=== PATIENT | male | born 1980 | race African-American/Black ===

== ENCOUNTER 2017-10-07 18:39 | Emergency (ER) | payer SELFPAY ==
[~2017-10-07] VITALS: Ht 167.6 cm; Wt 71.0 kg
[2017-10-07 18:40] VITALS: BP 164/89; PULSE 70; RESP 18; TEMP 99.5; O2SAT 100
--- NOTE | 2017-10-07 19:29 | PD ---
HPI Chief Complaint: GI Complaint Time Seen by Provider: 19:24 Travel History International Travel<30 days: No Contact w/Intl Traveler<30days: No Traveled to known affect area: No History of Present Illness HPI 37-year-old male presents to the emergency department by private transportation the care of family for evaluation of lower abdominal pain with multiple episodes of vomiting. Patient states he has been in his usual state of good health until Friday evening after eating [employer] he awakened in the wee hours of Friday with nausea and vomiting. Patient states he vomited primarily stomach contents and subsequently mostly he has had dry heaving. Patient denies bilious emesis coffee-ground emesis or hematemesis. Patient's last bowel movement was Friday morning and a normal bowel movement without melena or hematochezia. Patient denies any diarrhea. Patient's had subjective fever and chills but has not actually checked his temperature for elevation. Patient taking no medications. Patient states that today he has had no vomiting just persistent dry heaves and poor oral intake. Patient localizes pain to the lower abdomen and rectum and rates his pain 8/10 in intensity. Patient's had no bright red blood per rectum. Patient denies any dysuria frequency urgency flank pain or hematuria. Patient denies any injury or fall. Patient is unable to identify exacerbating or alleviating factors. Patient today tried to eat rice and corned beef but states he can only handle at teaspoonful and then had marked nausea. PFSH Past Medical History Narrative Medical Negative past medical history negative surgical history no alcohol use tobacco use positive marijuana use; nursing notes reviewed Medical History: Denies Significant Hx Tetanus Vaccination: < 5 Years Influenza Vaccination: No Past Surgical History Surgical History: No Previous Surgery Social History Alcohol Use: Yes (SOCIAL) Tobacco Use: No Substance Use: Yes (MARIJUANA) Allergies-Medications (Allergen,Severity, Reaction): Coded Allergies: No Known Allergies (Unverified , 10/07/17) Reported Meds & Prescriptions Reported Meds & Active Scripts Active Phenergan (Promethazine HCl) 25 Mg Tablet 25 Mg PO Q6H PRN Analpram-Hc Rectal (Hydrocortisone-Pramoxine Rectal) 2.5-1% Lotn 1 Applic RECTAL QID Narrative Medication No medications per patient Review of Systems Except as stated in HPI: all other systems reviewed are Neg General / Constitutional: Positive: Fever, Chills HENT: No: Sore Throat, Congestion Cardiovascular: No: Chest Pain or Discomfort Respiratory: No: Shortness of Breath Gastrointestinal: Positive: Nausea, Vomiting, Abdominal Pain, No: Diarrhea, Hematemesis, Hematochezia Genitourinary: No: Dysuria, Decreased Urinary Output, Flank Pain Musculoskeletal: No: Myalgias, Arthralgias Skin: No Rash Neurologic: No: Weakness Psychiatric: No: Anxiety Hematologic/Lymphatic: No: Lymph Node Enlargement Physical Exam Narrative GENERAL: Well-developed well-nourished male in no acute distress no respiratory distress SKIN: Warm and dry. HEAD: Normocephalic. EYES: No scleral icterus. No injection or drainage. NECK: Supple, trachea midline. No JVD or lymphadenopathy. CARDIOVASCULAR: Regular rate and rhythm without murmurs, gallops, or rubs. RESPIRATORY: Breath sounds equal bilaterally. No accessory muscle use. GASTROINTESTINAL: Abdomen soft, non-tender, no guarding and no rebound, nondistended. Rectal exam: No fissure large non-thrombosed hemorrhoid without active bleeding MUSCULOSKELETAL: No cyanosis, or edema. BACK: Nontender without obvious deformity. No CVA tenderness. Data Data Last Documented VS Vital Signs Date Time Temp Pulse Resp B/P (MAP) Pulse Ox O2 Delivery O2 Flow Rate FiO2 10/07/17 21:30 59 16 128/62 (84) 97 Room Air 10/07/17 18:40 99.5 Orders Orders Complete Blood Count With Diff (10/07/17 19:24) Comprehensive Metabolic Panel (10/07/17 19:24) Lipase (10/07/17 19:24) Urinalysis - C+S If Indicated (10/07/17 19:24) Iv Access Insert/Monitor (10/07/17 19:24) Ecg Monitoring (10/07/17 19:24) Oximetry (10/07/17 19:24) Sodium Chloride 0.9% Flush (Ns Flush) (10/07/17 19:30) Sodium Chlor 0.9% 1000 Ml Inj (Ns 1000 M (10/07/17 19:30) Ondansetron Inj (Zofran Inj) (10/07/17 19:30) Abdomen, Flat & Upright (10/07/17 ) Ketorolac Inj (Toradol Inj) (10/07/17 21:30) Labs Laboratory Tests Test 10/07/17 19:35 10/07/17 21:00 White Blood Count 7.7 TH/MM3 Red Blood Count 5.29 MIL/MM3 Hemoglobin 14.8 GM/DL Hematocrit 44.0 % Mean Corpuscular Volume 83.2 FL Mean Corpuscular Hemoglobin 27.9 PG Mean Corpuscular Hemoglobin Concent 33.6 % Red Cell Distribution Width 13.9 % Platelet Count 241 TH/MM3 Mean Platelet Volume 8.1 FL Neutrophils (%) (Auto) 52.3 % Lymphocytes (%) (Auto) 36.4 % Monocytes (%) (Auto) 8.5 % Eosinophils (%) (Auto) 2.1 % Basophils (%) (Auto) 0.7 % Neutrophils # (Auto) 4.0 TH/MM3 Lymphocytes # (Auto) 2.8 TH/MM3 Monocytes # (Auto) 0.7 TH/MM3 Eosinophils # (Auto) 0.2 TH/MM3 Basophils # (Auto) 0.1 TH/MM3 CBC Comment DIFF FINAL Differential Comment Blood Urea Nitrogen 12 MG/DL Creatinine 1.25 MG/DL Random Glucose 102 MG/DL Total Protein 7.9 GM/DL Albumin 3.8 GM/DL Calcium Level 8.7 MG/DL Alkaline Phosphatase 84 U/L Aspartate Amino Transf (AST/SGOT) 19 U/L Alanine Aminotransferase (ALT/SGPT) 18 U/L Total Bilirubin 0.2 MG/DL Sodium Level 139 MEQ/L Potassium Level 4.1 MEQ/L Chloride Level 106 MEQ/L Carbon Dioxide Level 29.9 MEQ/L Anion Gap 3 MEQ/L Estimat Glomerular Filtration Rate 79 ML/MIN Lipase 137 U/L Urine Color YELLOW Urine Turbidity CLEAR Urine pH 6.5 Urine Specific [place] 1.030 Urine Protein TRACE mg/dL Urine Glucose (UA) NEG mg/dL Urine Ketones NEG mg/dL Urine Occult Blood NEG Urine Nitrite NEG Urine Bilirubin NEG Urine Urobilinogen LESS THAN 2.0 MG/DL Urine Leukocyte Esterase NEG Urine RBC 5 /hpf Urine WBC 1 /hpf Urine Mucus MOD /lpf Microscopic Urinalysis Comment CULT NOT INDICATED MDM Medical Decision Making Medical Screen Exam Complete: Yes Emergency Medical Condition: Yes Medical Record Reviewed: Yes Interpretation(s) CBC & BMP Diagram 10/07/17 19:35 Total Protein 7.9, Albumin 3.8, Calcium Level 8.7, Alkaline Phosphatase 84, Aspartate Amino Transf (AST/SGOT) 19, Alanine Aminotransferase (ALT/SGPT) 18, Total Bilirubin 0.2 Vital Signs Date Time Temp Pulse Resp B/P (MAP) Pulse Ox O2 Delivery O2 Flow Rate FiO2 10/07/17 18:40 99.5 70 18 164/89 (114) 100 Room Air AXR: Nonspecific bowel gas pattern no air-fluid levels no free air large amount of stool Differential Diagnosis gastroenteritis, food borne illness, gastritis, biliary colic, pancreatitis, bowel obstruction, atypical appendicitis, renal colic, prolapsed hemorrhoids, anal fissure Narrative Course IV access obtained specimens collected and sent for resulting patient administered 1 L bolus of normal saline and Zofran 4 mg IV No further nausea and/or vomiting in the emergency department patient continues complaining of rectal pain On rectal exam patient has large non-thrombosed prolapsed hemorrhoid normal sphincter tone Flat and upright imaging study pending bed lab values are found to be in normal range. Patient will be given a one-time dose of Toradol 30 mg IV with planned prescription for Phenergan as an outpatient and anal pram Diagnosis Primary Impression: Gastroenteritis Additional Impression: Prolapsed hemorrhoids Referrals: Primary Care Physician call for appointment Patient Instructions: General Instructions Additional Instructions: Increase fluid hydration Follow clear liquid diet for next 12-24 hours advance diet as tolerated to bland /Todd diet then advance to regular diet avoiding fried and fatty foods Return to the emergency department for any concerns or change in condition Take acetaminophen/Tylenol as needed for fever 100.4F or greater or for minor pain Follow-up with her primary care provider No work times one day Med/Other Pt SpecificInfo: Prescription(s) given Scripts Promethazine (Phenergan) 25 Mg Tablet 25 MG PO Q6H Y for NAUSEA OR VOMITING, #10 TAB 0 Refills Prov: Valerie Mayers MD 10/07/17 Hydrocortisone-Pramoxine Rectal (Analpram-Hc Rectal) 2.5-1% Lotn 1 APPLIC RECTAL QID, #1 BOTTLE Prov: Valerie Mayers MD 10/07/17 Disposition: 01 DISCHARGE HOME Valerie Mayers MD Oct 07, 2017 19:29
[2017-10-07] MEDS ORDERED: ONDANSETRON HCL 4 MG/2 ML VIAL IV PUSH ONE (19:30)
[2017-10-07] MEDS ORDERED: SODIUM CHLORIDE 0.9% FLUSH 10 ML FLUSH IV FLUSH PRN (19:30)
[2017-10-07] MEDS ORDERED: SODIUM CHLOR 0.9% 1000 ML INJ 1,000 ML IV ONE (19:30)
[2017-10-07 20:00] LABS: BASOPHIL # 0.1 TH/MM3 (0-0.2); BASOPHIL % 0.7 % (0.0-2.0); EOSINOPHIL # 0.2 TH/MM3 (0-0.4); EOSINOPHIL % 2.1 % (0.0-4.0); HEMO FLAGS DIFF FINAL; LYMPH % 36.4 % (9.0-44.0); LYMPHOCYTE # 2.8 TH/MM3 (1.0-4.8); MEAN CELL VOLUME 83.2 FL (80.0-100.0); MEAN CORPUSCULAR HEMOGLOBIN 27.9 PG (27.0-34.0); MEAN CORPUSCULAR HGB CONC 33.6 % (32.0-36.0); MONO % 8.5 % (0.0-8.0); NEUT % 52.3 % (16.0-70.0); PLATELET COUNT 241 TH/MM3 (150-450); RED BLOOD COUNT 5.29 MIL/MM3 (4.50-5.90); RED CELL DISTRIBUTION WIDTH 13.9 % (11.6-17.2); WHITE BLOOD COUNT 7.7 TH/MM3 (4.0-11.0)
[2017-10-07 20:21] LABS: ALT (GPT) 18 U/L (12-78)
[2017-10-07 20:23] LABS: ALKALINE PHOSPHATASE 84 U/L (45-117); TOTAL BILIRUBIN ADULT 0.2 MG/DL (0.2-1.0)
[2017-10-07 20:26] LABS: ANION GAP 3 MEQ/L (5-15); AST (GOT) 19 U/L (15-37); BICARBONATE 29.9 MEQ/L (21.0-32.0); BLOOD UREA NITROGEN 12 MG/DL (7-18); CHLORIDE 106 MEQ/L (98-107); GLOMERULAR FILTRATION RATE 79 ML/MIN (>89); SODIUM (NA) 139 MEQ/L (136-145)
[2017-10-07 20:27] LABS: POTASSIUM 4.1 MEQ/L (3.5-5.1)
[2017-10-07 21:24] LABS: BLOOD, URINE NEG (NEG); COMMENT (UR) CULT NOT INDICATED; CULTURE IF INDICATED CULT NOT INDICATED; GLUCOSE,URINE NEG (NEG); KETONE, URINE NEG (NEG); MUCUS URINE MOD /lpf (OCC); NITRITE,URINE NEG (NEG); PH, URINE 6.5 (5.0-8.5); URINE COLOR YELLOW (YELLW/STRAW)
[2017-10-07 21:30] VITALS: BP 128/62; PULSE 59; RESP 16; O2SAT 97
[2017-10-07] MEDS ORDERED: KETOROLAC TROMETHAMINE 30 MG/ML (IVP) VIAL IV PUSH ONE (21:30)
[2017-10-07] MEDS ORDERED: HYDR1LOT9 RECTAL (21:32)
[2017-10-07] MEDS ORDERED: PROM25TA10 PO (21:33)
--- NOTE | 2017-10-07 22:36 | RADRPT ---
EXAM DATE/TIME: 10/07/2017 21:34 [facility] COMPARISON: No previous studies available for comparison. INDICATIONS : Vomiting. MEDICAL HISTORY : None. SURGICAL HISTORY : None. ENCOUNTER: Initial ACUITY: 3 days PAIN SCORE: 6/10 LOCATION: Bilateral chest FINDINGS: Supine and upright views of the abdomen were performed. The abdominal bowel gas pattern is normal. No air fluid levels are seen. No abnormal masses, calcifications, or organomegaly is seen. The visu alized lower lungs are clear. No evidence of free intraperitoneal gas. The osseous structures are u nremarkable. CONCLUSION: No dilated loops of small or large bowel. Master hCavez MD on October 07, 2017 at 22:34 Board Certified Radiologist. This report was verified electronically.
== END 2017-10-07 22:10 | disposition home or self-care (01) ==
LOC: NEPC 18:39
DX: K52.9 Noninfective gastroenteritis and colitis, unspecified (principal); K64.8 Other hemorrhoids; Z72.0 Tobacco use; Z79.899 Other long term (current) drug therapy
CPT/HCPCS: 74020; 80053; 81001; 83690; 85025; 96361; 96374; 96375; 99284; J1885; J2405; J7030